=== PATIENT | female | born 1985 | race Caucasian/White ===

== ENCOUNTER 2017-03-13 20:46 | Emergency (ER) | payer BC ==
[~2017-03-13] VITALS: Ht 165.1 cm; Wt 72.8 kg
[2017-03-13 21:51] VITALS: BP 139/78
--- NOTE | 2017-03-14 07:35 | Diagnostic Imaging Report ---
INDICATION: Trauma. Fell from curb. FINDINGS: There are no fractures or dislocations. Articulating surfaces are smooth. IMPRESSION: Negative right foot. Dictated by: Dictated on workstation # [id number]
== END 2017-03-13 21:53 | disposition home or self-care (01) ==
LOC: ED 20:49
DX: S93.601A Unspecified sprain of right foot, initial encounter (principal); X50.9XXA Other and unspecified overexertion or strenuous movements or postures, initial encounter
CPT/HCPCS: 99282; 99283